=== PATIENT | female | born 1960 | race Hispanic/Latino ===

== ENCOUNTER 2020-08-03 16:52 | Emergency (ER) | payer BC, OTHER ==
[~2020-08-03] VITALS: Ht 152.4 cm; Wt 68.9 kg
[~2020-08-03 16:52] MED LIST: METFORMIN HCL500 M1 PO
[2020-08-03] MEDS ORDERED: ULTRAM50 MG PO (19:35)
[2020-08-03] MEDS ORDERED: NEURONTIN100 MG PO (19:35)
[2020-08-03 19:37] VITALS: BP 160/92
== END 2020-08-03 19:41 | disposition home or self-care (01) ==
LOC: ER 17:26
DX: E11.40 Type 2 diabetes mellitus with diabetic neuropathy, unspecified (principal); Z87.19 Personal history of other diseases of the digestive system
CPT/HCPCS: 36415; 82948; 93971; 99283

== ENCOUNTER 2020-11-20 15:27 | Emergency (ER) | payer BC ==
[~2020-11-20] VITALS: Ht 152.4 cm; Wt 68.9 kg
[~2020-11-20 15:27] MED LIST changes: +NEURONTIN100 MG PO; +ULTRAM50 MG PO
[2020-11-20] MEDS ORDERED: KETOROLAC TROMETHAMINE 30 MG/ML VIAL IM STA (15:48)
== END 2020-11-20 17:32 | disposition home or self-care (01) ==
LOC: ER 15:43
DX: M79.671 Pain in right foot (principal); M77.8 Other enthesopathies, not elsewhere classified; I10 Essential (primary) hypertension; E11.9 Type 2 diabetes mellitus without complications; Z98.0 Intestinal bypass and anastomosis status; Z87.19 Personal history of other diseases of the digestive system
CPT/HCPCS: 99282; J1885

== ENCOUNTER 2023-05-16 09:48 | Emergency (ER) | payer BC, OTHER ==
[~2023-05-16] VITALS: Ht 167.6 cm; Wt 60.8 kg
[2023-05-16] MEDS ORDERED: DIPHENHYDRAMINE HCL INJ 50 MG/ML VIAL IV ONE (10:00)
[2023-05-16] MEDS ORDERED: ACETAMINOPHEN 325 MG TAB PO ONE (10:00)
[2023-05-16] MEDS ORDERED: SODIUM CHLORIDE 0.9% 1000ML 1,000 ML IV ONE (10:00)
[2023-05-16 10:14] LABS: BASOPHILS % 0.5 % (0.0-1.0); EOSINOPHILS # (AUTO) 0.1 (0.0-0.4); EOSINOPHILS % 1.2 % (0.0-6.0); HEMATOCRIT 42.6 % (34.2-44.1); HEMOGLOBIN 14.1 g/dL (12.0-16.0); LYMPHOCYTES # (AUTO) 2.1 (1.0-3.2); LYMPHOCYTES % 51.1 % (18.0-39.1); MEAN CORPUSCULAR HEMOGLOBIN 28.7 pg (28-32); MEAN CORPUSCULAR HGB CONC 33.1 g/dL (31-35); MEAN CORPUSCULAR VOLUME 86.6 fL (81-99); MONOCYTES # (AUTO) 0.4 (0.2-0.8); MONOCYTES % 8.4 % (4.4-11.3); NEUTROPHILS # (AUTO) 1.6 (2.1-6.9); NEUTROPHILS % 38.8 % (38.7-80.0); PLATELET COUNT 258 x10e3/uL (140-360); RED BLOOD COUNT 4.92 x10e6/uL (3.6-5.1); WHITE BLOOD COUNT 4.19 x10e3/uL (4.8-10.8)
[2023-05-16 10:41] LABS: CREATININE, SERUM 0.64 mg/dL (0.57-1.11)
[2023-05-16 10:42] LABS: ALBUMIN 4.1 g/dL (3.5-5.0); ALBUMIN/GLOBULIN RATIO 1.2 (0.8-2.0); CALCIUM 9.9 mg/dL (8.4-10.2)
[2023-05-16] MEDS ORDERED: METOCLOPRAMIDE HCL 10 MG/2ML VIAL IV ONE (10:45)
[2023-05-16] MEDS ORDERED: KETOROLAC TROMETHAMINE 30 MG/ML VIAL ONE (11:11)
[2023-05-16] MEDS ORDERED: KETOROLAC TROMETHAMINE 30 MG/ML VIAL IV STA (11:59)
[2023-05-16 12:16] VITALS: O2SAT 97
[2023-05-16 12:32] LABS: CLARITY,URINE HAZY (CLEAR); COLOR,URINE YELLOW (YELLOW); KETONES,URINE NEGATIVE (NEGATIVE); LEUKOCYTE ESTERASE ,URINE TRACE (NEGATIVE); NITRITE,URINE NEGATIVE (NEGATIVE); PROTEIN,URINE DIPSTICK NEGATIVE (NEGATIVE); URINE UROBILINOGEN 0.2 mg/dL (0.2 - 1)
[2023-05-16 12:37] LABS: BACTERIA,URINE FEW /HPF; EPITHELIAL CELLS,URINE FEW /LPF
== END 2023-05-16 14:42 | disposition home or self-care (01) ==
LOC: ER 09:50
DX: R42 Dizziness and giddiness (principal); I10 Essential (primary) hypertension; E11.9 Type 2 diabetes mellitus without complications; R51.9 Headache, unspecified; Z20.822 Contact with and (suspected) exposure to COVID-19; R94.31 Abnormal electrocardiogram [ECG] [EKG]; Z87.19 Personal history of other diseases of the digestive system
CPT/HCPCS: 36415; 70450; 80053; 81001; 83735; 85025; 93005; 99284; J1200; J1885; J2765; J7030; U0002